=== PATIENT | male | born 1995 | race Caucasian/White ===

== ENCOUNTER 2021-05-26 00:36 | Emergency (ER) | payer SELFPAY ==
[2021-05-26 01:19] LABS: HEMOGLOBIN 16.9 gm/dl (14.0-17.5); RED BLOOD COUNT 5.05 M/UL (4.20-5.50); WHITE BLOOD COUNT 13.2 K/UL (4.5-11.0)
[2021-05-26 02:04] LABS: BUN/CREATININE RATIO 11 (0-10)
[2021-05-26] MEDS ORDERED: VISTARIL 50 MG50 MG PO (04:03)
== END 2021-05-26 04:35 | disposition home or self-care (01) ==
LOC: ER1 00:36
PROVIDERS: Family Medicine
DX: R07.89 Other chest pain (principal); J45.909 Unspecified asthma, uncomplicated; F17.200 Nicotine dependence, unspecified, uncomplicated; F41.0 Panic disorder [episodic paroxysmal anxiety]
CPT/HCPCS: 71046; 80053; 82550; 82553; 83874; 84484; 85025; 93005; 99285